=== PATIENT | female | born 1995 | race Caucasian/White ===

== ENCOUNTER 2017-10-04 06:52 | Emergency (ER) | payer OTHER ==
--- NOTE | 2017-10-04 07:17 | EDPHY ---
H & P Time Seen by Provider: 10/04/17 07:10 HPI/ROS: Chief complaint. Leg pain HPI. 21-year-old female presents emergency department left leg pain that began at 2:00 a.m.. She describes as a charley horse. It goes from hip to foot. Hurts to move. Normal strength. Normal sensation. No injury. No swelling or redness. No recent long travel. No back pain. No bowel or bladder symptoms. No similar symptoms. She has tried icy Hot and ibuprofen with inadequate relief. Lots of walking yesterday ROS Constitutional. no fever/chills, no weakness Eyes. no problems with vision ENT. no sore throat, no nasal drainage Cardiovascular. no chest pain Respiratory. no shortness of breath, no cough Abdominal. no abdominal pain, no nausea/vomiting, no diarrhea . no problems urinating MS. Left leg pain Skin. no rash Lymph. no swollen glands Neuro. no headache, no dizziness, no difficulty walking or with speech Past Medical/Surgical History: Healthy Social History: Single, nonsmoker, no alcohol Smoking Status: Never smoked Physical Exam: General Appearance: Alert well-developed female no distress. Vital signs are stable Eyes: Pupils equal and round no pallor or injection. ENT, Mouth: Mucous membranes are moist. Respiratory: There are no retractions, lungs are clear to auscultation. Cardiovascular: Regular rate and rhythm. Gastrointestinal: Abdomen is soft and nontender, no masses, bowel sounds normal. Neurological: Awake and alert, sensory and motor exams grossly normal. Straight leg raising is normal to 30 degrees bilaterally. Deep tendon reflexes are symmetrical. Great toe strength is normal Skin: Warm and dry, no rashes. Musculoskeletal: Neck is supple nontender. Extremities symmetrical, full range of motion. No obvious swelling or deformity. Patient shows me tenderness from thigh to ankle without any disease location. Pulses are symmetric Psychiatric: Patient is oriented X 3, there is no agitation. Constitutional: Initial Vital Signs Temperature (C) 36.3 C 10/04/17 06:53 Heart Rate 93 10/04/17 06:53 Respiratory Rate 19 10/04/17 06:53 Blood Pressure 137/86 H 10/04/17 06:53 O2 Sat (%) 100 10/04/17 06:53 O2 Delivery Mode Room Air Allergies/Adverse Reactions: No Known Allergies Allergy (Unverified 10/04/17 06:53) Medical Decision Making - Diagnostics Imaging Results: Imaging Impressions Extremity Venous Study 10/04/17 07:27 Impression: No sonographic evidence of deep vein thrombosis in the left lower extremity. Dr. Escobar discussed these findings by telephone with MAGI RODRIGUEZ on 2017 at 8:36 hours. Ultrasound of the left leg reviewed by me and discussed with Dr. Zamora is negative for DVT Procedures: Tylenol ED Course/Re-evaluation: Re-evaluation 9:10 a.m.--patient is able. She and I discussed imaging study results, treatment plan including criteria for return importance of follow-up and further evaluation. She expresses understanding and agreement Differential Diagnosis: I suspect that this is musculoskeletal including sprain strain and overuse. I have considered DVT as well. No specific joint is involved. No swelling or evidence for infection. - Data Points Medications Given: Discontinued Medications Acetaminophen (Tylenol) 1,000 mg PO EDNOW ONE Stop: 10/04/17 07:28 Last Admin: 10/04/17 07:33 Dose: 1,000 mg Departure - Departure Disposition: Home, Routine, Self-Care Clinical Impression: Sprain of lower leg Qualifiers: Encounter type: initial encounter Laterality: left Qualified Code(s): S83.92XA - Sprain of unspecified site of left knee, initial encounter Condition: Good Instructions: Leg Sprain (ED) Additional Instructions: Elevation in easy activity next 24 hr. Ibuprofen 600 mg every 6 hr. Activity as tolerated. Return for worsening pain, fever, swelling. Recheck in 2 days if not improved Referrals: NONE *PRIMARY CARE P,. [Primary Care Provider] - As per Instructions [facility] [Outside] - 2-3 days, if not improved
[2017-10-04] MEDS ORDERED: ACETAMINOPHEN 500 MG TAB PO ONE (07:27)
[2017-10-04 09:31] VITALS: BP 124/80; PULSE 73; RESP 16; TEMP 98.1; O2SAT 96
== END 2017-10-04 09:31 | disposition home or self-care (01) ==
DX: S83.92XA Sprain of unspecified site of left knee, initial encounter (principal); X58.XXXA Exposure to other specified factors, initial encounter